=== PATIENT | female | born 1995 | race Caucasian/White ===

== ENCOUNTER 2018-07-28 20:48 | Emergency (ER) | payer BC ==
[~2018-07-28] VITALS: Ht 170.2 cm; Wt 70.3 kg
--- OUTSIDE RECORDS SUMMARY | 2018-07-28 20:51 | XMS REPORT | Clinical Summary ---
Author Author [facility] Organization [facility] Address Unknown Phone Unavailable Care Team Providers Care Soaking Room Operator Name Role Phone Asked, No Pcp PCP Unavailable Allergies No Known Allergies Medications End Date Status Medication Sig Dispensed Refills Start Date 09/15/2017 Discontinued acetaminophen-codeine Take 1-2 20 tablet 0 (TYLENOL WITH CODEINE #3) tablets by 8 300-30 mg per tablet mouth every 6 (six) hours as needed for moderate pain for up to 20 doses. Active Problems Problem Noted Date Ectopic 09/11/2017 Encounters Care Team Description Date Type Specialty Diana Jacinto MD Ectopic without intrauterine , unspecified location 10/02/2017 Orders Only Obstetrics and Gynecology Diana Jacinto MD Ectopic without intrauterine , unspecified location 09/25/2017 Orders Only Obstetrics and Gynecology Millie Wellington RN 09/18/2017 Telephone Obstetrics and Gynecology Diana Jacinto MD Ectopic without intrauterine , unspecified location (Primary Dx) 09/15/2017 Office Visit Obstetrics and Gynecology Bernadette Curtis RN Missed ab (Primary Dx) 09/14/2017 Orders Only Obstetrics and Gynecology Diana Jacinto MD 09/14/2017 Telephone Obstetrics and Gynecology Bernadette Curtis RN Missed ab (Primary Dx) 09/14/2017 Orders Only Obstetrics and Gynecology Mario Panrell MD Right tubal without intrauterine (Primary Dx) 09/11/2017 Emergency Emergency Medicine after 07/27/2017 Family History Medical History Relation Name Comments No Known Problems Father No Known Problems Mother Relation Name Status Comments Father Alive Mother Alive Social History Date Tobacco Use Types Packs/Day Years Used Current Every Day Smoker Smokeless Tobacco: Never Used Alcohol Use Drinks/Week oz/Week Comments No Sex Assigned at Date Recorded Not on file Industry Job Start Date Occupation Not on file Not on file Not on file Travel End Travel History Travel Start No recent travel history available. Last Filed Vital Signs Time Taken Vital Sign Reading 09/15/2017 11:42 AM CDT Blood Pressure 125/85 09/15/2017 11:42 AM CDT Pulse 77 09/15/2017 11:42 AM CDT Temperature 37.2 C (98.9 F) 09/11/2017 10:45 PM CDT Respiratory Rate 17 09/11/2017 10:45 PM CDT Oxygen Saturation 99% - Inhaled Oxygen - Concentration 09/15/2017 11:42 AM CDT Weight 73 kg (161 lb) 09/15/2017 11:42 AM CDT Height 170.2 cm (5' 7") 09/15/2017 11:42 AM CDT Body Mass Index 25.22 Plan of Treatment Health Maintenance Due Date Last Done Comments CHLAMYDIA SCREENING 2011 CERVICAL CANCER SCREENING 06/27/2016 INFLUENZA VACCINE 10/28/2018 Procedures Comments Procedure Name Priority Date/Time Associated Diagnosis HCG QUANTITATIVE, SERUM Routine 09/17/2017 Ectopic without 12:45 PM CDT intrauterine , unspecified location HCG QUANTITATIVE, SERUM Routine 09/14/2017 Missed ab 2:26 PM CDT ZZESTIMATED GFR Routine 09/11/2017 8:00 PM CDT COMPREHENSIVE METABOLIC Routine 09/11/2017 PANEL 8:00 PM CDT HC COMPLETE BLD COUNT Routine 09/11/2017 W/AUTO DIFF 8:00 PM CDT US TRANSVAGINAL STAT 09/11/2017 7:03 PM CDT US SINGLE LESS STAT 09/11/2017 THAN 14 WEEKS 7:02 PM CDT TYPE AND SCREEN Routine 09/11/2017 5:08 PM CDT HCG QUANTITATIVE, SERUM STAT 09/11/2017 5:08 PM CDT after 07/27/2017 Results * hCG quantitative, serum (09/17/2017 12:45 PM CDT) Only the most recent of 3 results within the time period is included. hCG quantitative, serum 165 (H) mIU/mL [facility] Comment: [place] Reference Range Non or premenopausal<5 Postmenopausal <10 Values from different assay methods may vary. The use of this assay to monitor or to diagnose patients with cancer or any condition unrelated to has not been cleared or approved by the FDA or the repairer screen crusher of the assay. Specimen Blood Resulting Agency Comment Performing Organization Information: Site ID: [id number] Name: [facility] Address: [address] [place] [phone] Director: Olivia Land Performing Organization Address City/[facility] Cent[facility]ode Phone Number [employer] [place] [phone] * Estimated GFR (09/11/2017 8:00 PM CDT) GFR Non Af Amer >90 mL/min/1.73 m2 [facility] DEPARTMENT OF PATHOLOGY AND GENOMIC MEDICINE GFR Af Amer >90 mL/min/1.73 m2 [facility] DEPARTMENT OF Comment: PATHOLOGY AND Chronic kidney disease: <60 GENOMIC MEDICINE mL/min/1.73m2 Kidney failure: <15 mL/min/1.73m2 The estimated GFR is calculated from the IDMS-traceable Modification of Diet in Renal Disease Equation. The accuracy of the calculation is poor when the creatinine is normal. Calculated values >90 mL/min/1.73m2 are not reported. This equation has not been validated in children (<18 years), women, the elderly (>70 years), or ethnic groups other than Caucasians and Americans. Specimen Plasma specimen Performing Organization Address City/[facility] Cent[facility]ode Phone Number [facility] [place] [id number] [place] [address] [place] [phone] PATHOLOGY AND [place] MEDICINE * CBC with platelet and differential (09/11/2017 8:00 PM CDT) WBC 9.14 4.50 - 11.00 k/uL [facility] DEPARTMENT OF PATHOLOGY AND GENOMIC MEDICINE RBC 4.08 (L) 4.20 - 5.50 m/uL [facility] DEPARTMENT OF PATHOLOGY AND GENOMIC MEDICINE HGB 12.3 12.0 - 16.0 g/dL [facility] DEPARTMENT OF PATHOLOGY AND GENOMIC MEDICINE HCT 35.9 (L) 37.0 - 47.0 % [facility] DEPARTMENT OF PATHOLOGY AND GENOMIC MEDICINE MCV 88.0 82.0 - 100.0 fL [facility] DEPARTMENT OF PATHOLOGY AND GENOMIC MEDICINE MCH 30.1 27.0 - 34.0 pg [facility] DEPARTMENT OF PATHOLOGY AND GENOMIC MEDICINE MCHC 34.3 31.0 - 37.0 g/dL [facility] DEPARTMENT OF PATHOLOGY AND GENOMIC MEDICINE RDW - SD 37.9 37.0 - 55.0 fL [facility] DEPARTMENT OF PATHOLOGY AND GENOMIC MEDICINE MPV 9.6 8.8 - 13.2 fL [facility] DEPARTMENT OF PATHOLOGY AND GENOMIC MEDICINE Platelet count 282 150 - 400 k/uL [facility] DEPARTMENT OF PATHOLOGY AND GENOMIC MEDICINE Nucleated RBC 0.00 /100 WBC [facility] DEPARTMENT OF PATHOLOGY AND GENOMIC MEDICINE Neutrophils 62.0 39.0 - 69.0 % [facility] DEPARTMENT OF PATHOLOGY AND GENOMIC MEDICINE Lymphocytes 30.9 25.0 - 45.0 % [facility] DEPARTMENT OF PATHOLOGY AND GENOMIC MEDICINE Monocytes 5.4 0.0 - 10.0 % [facility] DEPARTMENT OF PATHOLOGY AND GENOMIC MEDICINE Eosinophils 1.1 0.0 - 5.0 % [facility] DEPARTMENT OF PATHOLOGY AND GENOMIC MEDICINE Basophils 0.4 0.0 - 1.0 % [facility] DEPARTMENT OF PATHOLOGY AND GENOMIC MEDICINE Specimen Blood Performing Organization Address City/State/Zipcode Phone Number [address] [place] [address] PATHOLOGY AND GENOMIC MEDICINE * Comprehensive metabolic panel (09/11/2017 8:00 PM CDT) Sodium 136 135 - 148 mEq/L [facility] DEPARTMENT OF PATHOLOGY AND GENOMIC MEDICINE Potassium 3.9 3.5 - 5.0 mEq/L [facility] DEPARTMENT OF PATHOLOGY AND GENOMIC MEDICINE Chloride 102 98 - 112 mEq/L [facility] DEPARTMENT OF PATHOLOGY AND GENOMIC MEDICINE CO2 24 24 - 31 mEq/L [facility] DEPARTMENT OF PATHOLOGY AND GENOMIC MEDICINE Anion gap 10@ANIO 7 - 15 mEq/L [facility] DEPARTMENT OF PATHOLOGY AND GENOMIC MEDICINE BUN 7 6 - 20 mg/dL [facility] DEPARTMENT OF PATHOLOGY AND GENOMIC MEDICINE Creatinine 0.6 0.5 - 0.9 mg/dL [facility] DEPARTMENT OF PATHOLOGY AND GENOMIC MEDICINE Glucose 94 65 - 99 mg/dL [facility] DEPARTMENT OF PATHOLOGY AND GENOMIC MEDICINE Calcium 9.0 8.3 - 10.2 mg/dL [facility] DEPARTMENT OF PATHOLOGY AND GENOMIC MEDICINE Protein 7.2 6.3 - 8.3 g/dL [facility] DEPARTMENT OF Comment: PATHOLOGY AND GENOMIC MEDICINE 4.6-7.0 g/dL 1 week 4.4-7.6 g/dL 7 months-1year 5.1-7.3 g/dL 1-2 years5.6-7 .5 g/dL >3 years6.0-8 .0 g/dL 18-150 6.3-8.3 g/dL Albumin 4.5 3.5 - 5.0 g/dL [facility] DEPARTMENT OF PATHOLOGY AND GENOMIC MEDICINE A/G ratio 1.7 0.7 - 3.8 [facility] DEPARTMENT OF PATHOLOGY AND GENOMIC MEDICINE Alkaline phosphatase 52 35 - 104 U/L [facility] DEPARTMENT OF PATHOLOGY AND GENOMIC MEDICINE AST 16 10 - 35 U/L [facility] DEPARTMENT OF PATHOLOGY AND GENOMIC MEDICINE ALT 8 5 - 50 U/L [facility] DEPARTMENT OF PATHOLOGY AND GENOMIC MEDICINE Total bilirubin 0.2 0.0 - 1.2 mg/dL [facility] DEPARTMENT OF PATHOLOGY AND GENOMIC MEDICINE Specimen Plasma specimen Performing Organization Address City/[facility] Centercode Phone Number [address] [place] [address] PATHOLOGY AND GENOMIC MEDICINE * US Transvaginal (09/11/2017 7:03 PM CDT) Narrative Performed At EXAMINATION:US TRANSVAGINAL [facility] CLINICAL HISTORY:r o ectopic COMPARISON:None. IMPRESSION:Please see ultrasound single less than 14 week gestation report of the same date [id number] Procedure Note Hm Interface, Radiology Results Incoming - 09/11/2017 7:21 PM CDT EXAMINATION: US TRANSVAGINAL CLINICAL HISTORY: r o ectopic COMPARISON: None. IMPRESSION:Please see ultrasound single less than 14 week gestation report of the same date [id number] Performing Organization Address City/[facility]/Zipcode Phone Number [facility] [address] [place] [address] * US Single Less Than 14 Weeks (09/11/2017 7:02 PM CDT) Narrative Performed At EXAMINATION:US SINGLE LESS THAN 14 WEEKS [facility] CLINICAL HISTORY:r o ectopic COMPARISON:None. FINDINGS: Uterus measures 7.5 cm length 4.2 cm in AP dimension 6.2 cm in width. There is no gestational sac identified within the uterus. No decidual reaction is visualized within the uterus. The uterus appears somewhat heterogeneous in texture. To better assess uterine texture and evaluate the adnexa transvaginal scanning was employed. Transvaginal scan: Demonstrates endometrial thickness of 1.1 cm. The right ovary appears normal measuring 3.7 x 2.2 x 4.9 cm with what may be a small hemorrhagic cyst measuring approximately 1.7 x 2.3 cm. Flow to the right ovary is demonstrated. The left ovary measures 3.5 x 2.0 x 3.3 cm. Flow to the left ovary is identified. There is however a heterogeneous 1.5 x 1.2 cm echogenic focus with a central lucency suggesting an ectopic . There is little flow around the margins of the mass although there are a few internal echoes internally suggesting the possibility of an early embryo although no cardiac activity is identified. There is no free fluid in the cul-de-sac. IMPRESSION: 1. Left adnexal mass which has an appearance very suggestive of an ectopic although this is not entirely definitive. No embryo or yolk sac is confirmed with certainty. 2. No free fluid in the cul-de-sac. The findings were discussed with Dr. Parnell in the emergency department September 11, 2017 7:17 PM [id number] Procedure Note Hm Interface, Radiology Results Incoming - 09/11/2017 7:20 PM CDT EXAMINATION: US SINGLE LESS THAN 14 WEEKS CLINICAL HISTORY: r o ectopic COMPARISON: None. FINDINGS: Uterus measures 7.5 cm length 4.2 cm in AP dimension 6.2 cm in width. There is no gestational sac identified within the uterus. No decidual reaction is visualized within the uterus. The uterus appears somewhat heterogeneous in texture. To better assess uterine texture and evaluate the adnexa transvaginal scanning was employed. Transvaginal scan: Demonstrates endometrial thickness of 1.1 cm. The right ovary appears normal measuring 3.7 x 2.2 x 4.9 cm with what may be a small hemorrhagic cyst measuring approximately 1.7 x 2.3 cm. Flow to the right ovary is demonstrated. The left ovary measures 3.5 x 2.0 x 3.3 cm. Flow to the left ovary is identified. There is however a heterogeneous 1.5 x 1.2 cm echogenic focus with a central lucency suggesting an ectopic . There is little flow around the margins of the mass although there are a few internal echoes internally suggesting the possibility of an early embryo although no cardiac activity is identified. There is no free fluid in the cul-de-sac. IMPRESSION: 1. Left adnexal mass which has an appearance very suggestive of an ectopic although this is not entirely definitive. No embryo or yolk sac is confirmed with certainty. 2. No free fluid in the cul-de-sac. The findings were discussed with Dr. Parnell in the emergency department September 11, 2017 7:17 PM [id number] Performing Organization Address City/[facility] Phone Number [facility] [address] [place] [address] * Type and screen (09/11/2017 5:08 PM CDT) ABO grouping O [facility] DEPARTMENT OF PATHOLOGY AND GENOMIC MEDICINE Rh type POS [facility] DEPARTMENT OF PATHOLOGY AND GENOMIC MEDICINE Antibody screen NEG [facility] DEPARTMENT OF PATHOLOGY AND GENOMIC MEDICINE Specimen Blood Performing Organization Address City/[facility] Cent[facility]ode Phone Number [facility] DEPARTMENT [address] [place] [address] PATHOLOGY AND GENOMIC MEDICINE after 07/27/2017 Insurance Payer Benefit Subscriber ID Type Phone Address Plan / Group BCBS BCBS xxxxxxxxxxxx PPO CHOICE PPO/[employer] PPO Advance Directives Patient has advance care planning documents on file. For more information, talia paredes contact: Brayan Zavala [address] [place] [address]
--- OUTSIDE RECORDS SUMMARY | 2018-07-28 20:51 | XMS REPORT ---
Author [facility] Address Unknown Phone Unavailable Care Team Providers Care Mounter Flutes And Piccolos Name Role Phone Unavailable Unavailable Payers Payer Name Policy Type Policy Number Effective Date Expiration Date Problems This patient has no known problems. Allergies, Adverse Reactions, Alerts Allergy Name Allergy Type Status Severity Reaction(s) Onset Date Inactive Date Treating Clinician Comments No Known Allergies DA Active U 2017-05-14 00:00:00 Medications This patient has no known medications. Results Test Description Test Time Test Comments Text Results Atomic Results Result Comments CSF CELL CT/DIFF 2018-07-27 16:27:00 CSF TUBE # (test code=BFCSFT) 3 CSF COLOR (test code=COLCSF) COLORLESS COLORLESS CSF APPEARANCE (test code=APPCSF) CLEAR CLEAR DILUENT CHECK FOR CELL CT (test code=DILUENT) NO DILUENT USED CLEAR,pH=7 CSF VOLUME (test code=VOLCSF) 28.0 ML Previously reported result: 13.5 MLEdited by: [email or web address] on 19:1626 CSF WBC (test code=WBCCSF) 1 CELL/MM3 0-5 CSF RBC (test code=RBCCSF) 1 CELL/MM3 0-0 # SQUARES COUNTED ON LYNN (test code=SQCTRBC) 9 Specimen comments: cerebrospinal fluidCSF [id number] 16:27:00* Test Item Value Reference Range Comments CSF ALBUMIN (test code=ALBCSF) MG/DL 11-48 Specimen comments: cerebrospinal fluidCSF IMMUNOGLOBULIN [id number] 16:27:00* Test Item Value Reference Range Comments CSF IMMUNOGLOBULIN G (test code=IGGCSF) mg/dl 0.0-8.6 Specimen comments: cerebrospinal fluidCSF IGG [id number] 16:27:00* Test Item Value Reference Range Comments CSF IGG INDEX (test code=IGGINCSF) 0.0-0.6 Specimen comments: cerebrospinal fluidCSF IGG [id number] 16:27:00* Test Item Value Reference Range Comments CSF IGG SYNTHESIS (test code=IGGSYNCSF) mg/24HR -9.9-3.3 Specimen comments: cerebrospinal fluidCSF IGG/ALBUMIN [id number] 16:27:00* Test Item Value Reference Range Comments CSF IGG/ALBUMIN RATIO (test code=IGGALBCSF) Specimen comments: cerebrospinal fluidCSF [id number] 16:27:00* Test Item Value Reference Range Comments CSF GLUCOSE (test code=GLUCSF) 52 MG/DL 40-70 Specimen comments: cerebrospinal fluidCSF TOTAL [id number] 16:27:00* Test Item Value Reference Range Comments CSF TOTAL PROTEIN (test code=PROTCSF) 50 MG/DL 12-60 Specimen comments: cerebrospinal fluidCSF MYELIN SHEATH [id number] 16:27:00* Test Item Value Reference Range Comments CSF MYELIN SHEATH PROTEIN (test code=MYELCSF) ng/ml 0.0-1.2 Specimen comments: cerebrospinal fluidCSF OLIGOCLONAL [id number] 16:27:00* Test Item Value Reference Range Comments CSF OLIGOCLONAL BANDS (test code=OLIGCSFMS) Specimen comments: cerebrospinal fluidCSF VDRL [id number] 16:27:00* Test Item Value Reference Range Comments CSF VDRL QUAL (test code=VDRLCSFQL) NON REACT Specimen comments: cerebrospinal fluidCSF CELL [id number] 16:25:00* Test Item Value Reference Range Comments CSF TUBE # (test code=BFCSFT) 3 CSF COLOR (test code=COLCSF) COLORLESS COLORLESS CSF APPEARANCE (test code=APPCSF) CLEAR CLEAR DILUENT CHECK FOR CELL CT (test code=DILUENT) NO DILUENT USED CLEAR,pH=7 CSF VOLUME (test code=VOLCSF) 13.5 ML CSF WBC (test code=WBCCSF) 1 CELL/MM3 0-5 CSF RBC (test code=RBCCSF) 1 CELL/MM3 0-0 # SQUARES COUNTED ON LYNN (test code=SQCTRBC) 9 Specimen comments: cerebrospinal fluidCSF [id number] 16:25:00* Test Item Value Reference Range Comments CSF ALBUMIN (test code=ALBCSF) MG/DL 11-48 Specimen comments: cerebrospinal fluidCSF IMMUNOGLOBULIN [id number] 16:25:00* Test Item Value Reference Range Comments CSF IMMUNOGLOBULIN G (test code=IGGCSF) mg/dl 0.0-8.6 Specimen comments: cerebrospinal fluidCSF IGG [id number] 16:25:00* Test Item Value Reference Range Comments CSF IGG INDEX (test code=IGGINCSF) 0.0-0.6 Specimen comments: cerebrospinal fluidCSF IGG [id number] 16:25:00* Test Item Value Reference Range Comments CSF IGG SYNTHESIS (test code=IGGSYNCSF) mg/24HR -9.9-3.3 Specimen comments: cerebrospinal fluidCSF IGG/ALBUMIN [id number] 16:25:00* Test Item Value Reference Range Comments CSF IGG/ALBUMIN RATIO (test code=IGGALBCSF) Specimen comments: cerebrospinal fluidCSF [id number] 16:25:00* Test Item Value Reference Range Comments CSF GLUCOSE (test code=GLUCSF) 52 MG/DL 40-70 Specimen comments: cerebrospinal fluidCSF TOTAL [id number] 16:25:00* Test Item Value Reference Range Comments CSF TOTAL PROTEIN (test code=PROTCSF) 50 MG/DL 12-60 Specimen comments: cerebrospinal fluidCSF MYELIN SHEATH [id number] 16:25:00* Test Item Value Reference Range Comments CSF MYELIN SHEATH PROTEIN (test code=MYELCSF) ng/ml 0.0-1.2 Specimen comments: cerebrospinal fluidCSF OLIGOCLONAL [id number] 16:25:00* Test Item Value Reference Range Comments CSF OLIGOCLONAL BANDS (test code=OLIGCSFMS) Specimen comments: cerebrospinal fluidCSF VDRL [id number] 16:25:00* Test Item Value Reference Range Comments CSF VDRL QUAL (test code=VDRLCSFQL) NON REACT Specimen comments: cerebrospinal fluidCSF CELL [id number] 16:10:00* Test Item Value Reference Range Comments CSF TUBE # (test code=BFCSFT) CSF COLOR (test code=COLCSF) COLORLESS CSF APPEARANCE (test code=APPCSF) CLEAR DILUENT CHECK FOR CELL CT (test code=DILUENT) CLEAR,pH=7 CSF VOLUME (test code=VOLCSF) ML CSF WBC (test code=WBCCSF) CELL/MM3 0-5 CSF RBC (test code=RBCCSF) CELL/MM3 0-0 Specimen comments: cerebrospinal fluidCSF [id number] 16:10:00* Test Item Value Reference Range Comments CSF ALBUMIN (test code=ALBCSF) MG/DL 11-48 Specimen comments: cerebrospinal fluidCSF IMMUNOGLOBULIN [id number] 16:10:00* Test Item Value Reference Range Comments CSF IMMUNOGLOBULIN G (test code=IGGCSF) mg/dl 0.0-8.6 Specimen comments: cerebrospinal fluidCSF IGG [id number] 16:10:00* Test Item Value Reference Range Comments CSF IGG INDEX (test code=IGGINCSF) 0.0-0.6 Specimen comments: cerebrospinal fluidCSF IGG [id number] 16:10:00* Test Item Value Reference Range Comments CSF IGG SYNTHESIS (test code=IGGSYNCSF) mg/24HR -9.9-3.3 Specimen comments: cerebrospinal fluidCSF IGG/ALBUMIN [id number] 16:10:00* Test Item Value Reference Range Comments CSF IGG/ALBUMIN RATIO (test code=IGGALBCSF) Specimen comments: cerebrospinal fluidCSF [id number] 16:10:00* Test Item Value Reference Range Comments CSF GLUCOSE (test code=GLUCSF) 52 MG/DL 40-70 Specimen comments: cerebrospinal fluidCSF TOTAL [id number] 16:10:00* Test Item Value Reference Range Comments CSF TOTAL PROTEIN (test code=PROTCSF) 50 MG/DL 12-60 Specimen comments: cerebrospinal fluidCSF MYELIN SHEATH [id number] 16:10:00* Test Item Value Reference Range Comments CSF MYELIN SHEATH PROTEIN (test code=MYELCSF) ng/ml 0.0-1.2 Specimen comments: cerebrospinal fluidCSF OLIGOCLONAL [id number] 16:10:00* Test Item Value Reference Range Comments CSF OLIGOCLONAL BANDS (test code=OLIGCSFMS) Specimen comments: cerebrospinal fluidCSF VDRL [id number] 16:10:00* Test Item Value Reference Range Comments CSF VDRL QUAL (test code=VDRLCSFQL) NON REACT Specimen comments: cerebrospinal fluid- MRV HEAD WO [id number] 08:26:00 Patient Name: JELENA CARRILLO Unit No: [id number] EX AMS: CPT CODE: [id number] MRV HEAD WO CONT 21578 MRV HEAD WITHOUT CONTRAST HISTORY: Papilledema COMPARISON: None. TECHNIQUE: 3-D nvso-mj-dguzbt coronal and MIP images were obtained through the deep venous sinuses. Location: U19. FINDINGS: There is asymmetry in the transverse sinus with the right being dominant, likely related to variant anatomy. The sigmoid, transverse, sagittal and straight sinuses are patent. No evidence of a deep venous thrombosis. IMPRESSION: No venous sinus thr ombosis. at 0826 Reported and signed by: Mirtha Guajardo MD CC: Technologist: Richard Coto RT(R)(CT)(MRI) Transcrpt Date/Tm/Trnsp: 07/27/2018 (825) [email or web address] Orig Print D/T: S: 07/27/2018 (0829) [facility] NAME: JELENA CARRILLO [id number] PHYS: [place] [address] : 1995 AGE: 23 SEX: F LOC: [id number] A PHONE #: [phone] EXAM DATE: 07/27/2018 STATUS: ADM IN FAX #: [phone] RADIOLOGY NO: PAGE 1 Signed Report HIV 12 AB DIFFERENTIATION 2018-07-26 21:43:00* Test Item Value Reference Range Comments AB HIV 1 2 (test code=CUA03IH) NON REACTIVE NON-REAC NOTE: A NONREACTIVE RESULT INDICATES THAT HIV-1 AND HIV-2ANTIBODIES HAVE NOT BEEN FOUND IN THIS PATIENT SPECIMEN. ANON-REACTIVE RESULT, HOWEVER, DOES NOT PRECLUDE PREVIOUSEXPOSURE OR INFECTION WITH HIV1. AG HIV1 P24 (test code=MLO0J44) NON REACTIVE NONE REAC CSF CELL [id number] 15:05:00* Test Item Value Reference Range Comments CSF TUBE # (test code=BFCSFT) 4 CSF COLOR (test code=COLCSF) COLORLESS COLORLESS CSF APPEARANCE (test code=APPCSF) CLEAR CLEAR DILUENT CHECK FOR CELL CT (test code=DILUENT) NO DILUENT USED CLEAR,pH=7 CSF VOLUME (test code=VOLCSF) 28.0 ML CSF WBC (test code=WBCCSF) 2 CELL/MM3 0-5 CSF RBC (test code=RBCCSF) 0 CELL/MM3 0-0 CSF [id number] 15:05:00* Test Item Value Reference Range Comments CSF GLUCOSE (test code=GLUCSF) 52 MG/DL 40-70 CSF TOTAL [id number] 15:05:00* Test Item Value Reference Range Comments CSF TOTAL PROTEIN (test code=PROTCSF) 49 MG/DL 12-[id number] 14:30:00* Test Item Value Reference Range Comments CSF TUBE # (test code=BFCSFT) 4 CSF COLOR (test code=COLCSF) COLORLESS COLORLESS CSF APPEARANCE (test code=APPCSF) CLEAR CLEAR DILUENT CHECK FOR CELL CT (test code=DILUENT) NO DILUENT USED CLEAR,pH=7 CSF VOLUME (test code=VOLCSF) 28.0 ML CSF WBC (test code=WBCCSF) 2 CELL/MM3 0-5 CSF RBC (test code=RBCCSF) 0 CELL/MM3 0-0 CSF [id number] 14:30:00* Test Item Value Reference Range Comments CSF GLUCOSE (test code=GLUCSF) MG/DL 40-70 CSF TOTAL [id number] 14:30:00* Test Item Value Reference Range Comments CSF TOTAL PROTEIN (test code=PROTCSF) MG/DL 12-60 - SP PUNCTURE LUMBAR [id number] 14:26:00 Patient Name: JELENA CARRILLO Unit No: [id number] EXAMS: CPT CODE: [id number] [place] [address] PROCEDURE: IMAGE-GUIDED LUMBAR PUNCTURE. LOCATION: B2. HISTORY: Papilledema and headache. SEDATION: The patient did not require conscious sedation for the procedure. RADIATION DOSE: Reference air kerma 8.34 mGy. TECHNIQUE: Risks, benefits, and alternatives were explained to the patient and informed consent was obtained. The patient was prepped in the usual sterile fashion. Sterile barriers including cap, mask, sterile gloves, and cutaneous antisepsis were utilized. Patient was placed in the left lateral decubitus position. Fluoroscopy was used to determine an appropriate access into the thecal sac. Using fluoroscopic guidance, a needle was advanced into the thecal sac at the level of L3/4. Opening CSF pressure was 43 cm H2O. Approximately 25 mL of clear CSF was removed. Samples were sent for lab analysis. The patient tolerated the procedure well. ESTIMATED BLOOD LOSS: Less than 5 mL. COMPLICATIONS: None. DISCHARGED TO: Inpatient unit. FINDINGS: Fluoroscopy demonstrates appropriate needle placement into the thecal sac. IMPRESSION: Successful image-guided lumbar puncture. Elevated opening CSF pressure of 43 cm H2O. Electronic ally Signed by Alissa Garcia MD on 07/26/2018 at 7763 Rep orted and signed by: Alissa Garcia MD [facility] NAME: JELENA CARRILLO [id number] PHYS: [place] [address] : 1995 AGE: 23 SEX: F ACCT NO: Z [id number] LOC: Z.507 A PHONE #: [phone] EXAM DATE: STATUS: ADM IN FAX #: [phone] RADIOLOGY NO: PAGE 1 Signed Report (CONTINUED) Patient Name: JELENA CARRILLO Unit No: [id number] EXAMS: CPT CODE: [id number] [place] [id number] <Continued> CC: Mart Haque MD; Vandana Armendariz MD Technologist: Ning Beckham, RT(R) Transcrpt Date/Tm/Trnsp: 07/26/2018 (9820) [email or web address] Orig Print D/T: S: 07/26/2018 (6910) [facility] NAME: JELENA CARRILLO [address] PHYS: [place] [address] : 1995 AGE: 23 SEX: F LOC: Geraldine Durán PHONE #: [phone] EXAM DATE: 07/26/2018 STATUS: ADM IN FAX #: [phone] RADIOLOGY NO: PAGE 2 Signed Report CHLOE [id number] 07:45:00* Test Item Value Reference Range Comments CHLOE DIRECT (test code=ANADIR) Negative () Negative <1:80 Borderline 1:80 Positive >1:80Performed At: [facility] [address] [id number] Mingo Guzmán MD Ph:[phone] LUPUS (LE) [id number] 07:45:00* Test Item Value Reference Range Comments LUPUS (SLE) PANEL RESULTS (test code=SLEPANELR) Systemic Lupus Profile A GREASER AND OILER Antibodies <0.2 AI 0.0 - 0.9 Parks Antibodies <0.2 AI 0.0 - 0.9 RA Latex Turbid. <10.0 IU/mL 0.0 - 13.9 Antichromatin Antibodies <0.2 AI 0.0 - 0.9 Sjogren's Anti-SS-A <0.2 AI 0.0 - 0.9 Sjogren's Anti-SS-B <0.2 AI 0.0 - 0.9 Anti-DNA (DS) Ab Qn 4 IU/mL 0 - 9 Negative <5 Equivocal 5 - 9 Positive >9 TOTAL [id number] 07:39:00* Test Item Value Reference Range Comments TOTAL T3 (test code=T3) 1.58 ng/ML 0.97-1.69 [id number] 07:39:00* Test Item Value Reference Range Comments THYROGLOBULIN (test code=THYROGL) 36.5 NORMAL : 1.5-38.5 ng/ml AB [id number] 07:18:00* Test Item Value Reference Range Comments AB THYROGLOBULIN (test code=THYROAB) < 1.0 IU/mL 0.0-0.9 Thyroglobulin Antibody measured by [facility] [employer] AB THYROID [id number] 07:18:00* Test Item Value Reference Range Comments AB THYROID MICROSOMAL (test code=THYRMAB) 15 IU/mL 0-34 Performed At: [facility] [address] [id number] Guzmán MD Ph:[phone] CHLOE [id number] 07:18:00* Test Item Value Reference Range Comments CHLOE DIRECT (test code=ANADIR) Negative () Negative <1:80 Borderline 1:80 Positive >1:80Performed At: [facility] [address] [id number] Guzmán MD Ph:[phone] LUPUS (LE) [id number] 07:18:00* Test Item Value Reference Range Comments LUPUS (SLE) PANEL RESULTS (test code=SLEPANELR) AI 0.0-0.9 T4 (THYROXINE)2018-07-24 07:23:00* Test Item Value Reference Range Comments T4 (THYROXINE) (test code=T4) 10.30 UG/DL 5.53-11.0 THYROID STIMULATING [id number] 07:23:00* Test Item Value Reference Range Comments THYROID STIMULATING HORMONE (test code=TSH) 0.692 MIU/L 0.465-4.68 Please be aware that bias results for TSH may occur forpatient who are taking Biotin supplements. T4 (THYROXINE)2018-07-24 07:09:00* Test Item Value Reference Range Comments T4 (THYROXINE) (test code=T4) 10.30 UG/DL 5.53-11.0 THYROID STIMULATING [id number] 07:09:00* Test Item Value Reference Range Comments THYROID STIMULATING HORMONE (test code=TSH) MIU/L 0.465-4.68 T4 [id number] 07:06:00* Test Item Value Reference Range Comments T4 FREE (test code=T4F) 1.1 NG/DL 0.78-2.19 TOTAL [id number] 13:58:00* Test Item Value Reference Range Comments TOTAL T3 (test code=T3) 1.58 ng/ML 0.97-1.69 SED [id number] 03:02:00* Test Item Value Reference Range Comments SED RATE (test code=SEDW) 25 MM/HR 0-20 RHEUMATOID FACTOR [id number] 01:49:00* Test Item Value Reference Range Comments RHEUMATOID FACTOR SCREEN (test code=RA) NEGATIVE NEGATIVE - MRI OR/FCE/NCK W [id number] 21:21:00 Patient Name: JELENA CARRILLO Unit No: [id number] EXAMS: CPT CODE: [id number] [place]/FCE/[place] [address] MRI ORBITS WITHOUT AND WITH CONTRAST HISTORY: papilledema and migraines TECHNIQUE: Multiplanar and multiple pulse sequences were obtained throughout the orbits and brain without and with gadolinium (18 mL MultiHance). Location: L11. COMPARISON: None. FINDINGS: Diffusion weighted imaging shows no evidence of acute ischemia. There are couple of scattered small foci of increased T2 and FLAIR signal within the periventricular and deep white matter in both cerebral hemispheres. No intracranial hemorrhage, mass, mass effect, hydrocephalus, midline shift or extra-axial fluid collection. Images of the orbits show minimal protrusion of the optic discs and prominent CSF surrounding the optic nerves bilaterally. No abnormal enhancement. The extraocular muscles are unremarkable. No evidence of extraocular muscle entrapment, correlate clinically. The optic chiasm and tracts are unremarkable. Pituitary fossa and posterior fossa are unremarkable. Postcontrast images show no abnormal enhancement. The paranasal sinuses and mastoid air cells are clear. IMPRESSION: Prominent CSF surrounding the optic nerves bilaterally along with slight protrusion of the optic discs likely relate to papilledema. No significant en hancement however optic neuritis may also be considered. Minim al scattered white matter disease, greater than expected for age. Findi ngs are nonspecific and can be associated with migraines or demyelinatin g process such as multiple sclerosis.. Electronically Elen d by Mirtha Guajardo MD on 07/22/2018 at 2120 Reported and signed by: Mirtha Guajardo MD CC: Kwame Parks MD Technologist: Vane Tinsley RT(R) (MR) Transcrpt Date/Tm/Trnsp: 07/22/2018 (2120) [email or web address] Orig Print D/T: S: 07/22/2018 (2123) [facility] NAME: JELENA ROTH [id number] [address] PHYS: [email or web address] - [place] [address] : 1995 AGE: 23 SEX: F LOC: Z.507 A PHONE #: [phone] EXAM DATE: 07/22/2018 STATUS: ADM IN FAX #: [phone] RADIOLOGY NO: PAGE 1 Signed Report HCG SERUM 2018-07-22 19:15:00* Test Item Value Reference Range Comments HCG SERUM (test code=HCG) < 2 IU/L ~~~~~~~~~~~~~~~~~~~~~~~~~~~~~~~~~~~~~~~~~~~~~~~~~~~~~~~~~~~~INTERPRETATION OF BHCG QN PERFORMED AT [facility] 0.2-1 WEEKS AFTER CONCEPTION 5-50 1-2 WEEKS AFTER CONCEPTION 50-500 2-3 WEEKS AFTER CONCEPTION 100-5,000 3-4 WEEKS AFTER CONCEPTION 500-10,000 4-5 WEEKS AFTER CONCEPTION 1,000-50,000 5-6 WEEKS AFTER CONCEPTION 10,000-100,0006-8 WEEKS AFTER CONCEPTION 15,000-200,0002-3 MONTHS 10,000-100,000 All values given in slime-International Units per milliliter. SPECIMENS WITH B-HCG LEVELS LESS THAN OR EQUAL TO 5 slime- International Units per milliliter WILL BE REPORTED ZERO OR "NEGATIVE." SPECIMENS WITHB-HCG LEVELS GREATER THAN OR EQUAL TO 25 slime-International Units per milliliter WILL BEREPORTED "POSITIVE." SPECIMENS WITH B-HCG LEVELS GREATERTHAN 5 slime-International Units per milliliter AND LESS THAN 25 slime- International Units per milliliterSHOULD HAVE ADDITIONAL BLOOD SAMPLE DRAWN 48 HOURSLATER AND REPEATED.~~~~~~~~~~~~~~~~~~~~~~~~~~~~~~~~~~~~~~~~~~~~~~~~~~~~~~~~~~~~ BASIC METABOLIC [id number] 19:10:00* Test Item Value Reference Range Comments SODIUM (test code=NA) 142 MMOL/L 137-145 POTASSIUM (test code=K) 3.8 MMOL/L 3.5-5.1 CHLORIDE (test code=CL) 104 MMOL/L 98-107 CARBON DIOXIDE (test code=CO2) 27 MMOL/L 22-30 GLUCOSE (test code=GLU) 86 MG/DL 74-106 BLOOD UREA NITROGEN (test code=BUN) 10 MG/DL 7-17 GLOMERULAR FILTRATION RATE (test code=GFR) > 60 Reporting units: ml/min/1.73 m2 (Modified MDRD Formula)Reference Range: > or=60 ml/min/1.73 m2 CREATININE (test code=CREAT) 0.70 MG/DL 0.52-1.04 CALCIUM (test code=CA) 9.7 MG/DL 8.4-10.2 [id number] 19:10:00* Test Item Value Reference Range Comments TROPONIN-I (test code=TROPI) < 0.012 NG/ML 0.012-0.033 BASIC METABOLIC [id number] 19:04:00* Test Item Value Reference Range Comments SODIUM (test code=NA) 142 MMOL/L 137-145 POTASSIUM (test code=K) 3.8 MMOL/L 3.5-5.1 CHLORIDE (test code=CL) 104 MMOL/L 98-107 CARBON DIOXIDE (test code=CO2) 27 MMOL/L 22-30 GLUCOSE (test code=GLU) 86 MG/DL 74-106 BLOOD UREA NITROGEN (test code=BUN) 10 MG/DL 7-17 GLOMERULAR FILTRATION RATE (test code=GFR) > 60 Reporting units: ml/min/1.73 m2 (Modified MDRD Formula)Reference Range: > or=60 ml/min/1.73 m2 CREATININE (test code=CREAT) 0.70 MG/DL 0.52-1.04 CALCIUM (test code=CA) 9.7 MG/DL 8.4-10.2 [id number] 19:04:00* Test Item Value Reference Range Comments TROPONIN-I (test code=TROPI) NG/ML 0.0-0.045 PROTHROMBIN [id number] 18:54:00* Test Item Value Reference Range Comments PROTHROMBIN TIME PATIENT (test code=PTP) 11.3 SECONDS 9.6-11.6 INTERNATIONAL NORMAL RATIO (test code=INR) 1.1 0.8-1.1 The INR is to be used only for monitoring oral anticoagulanttherapy. INDICATION INR VALUE 1. Prophylaxis, deep venous thrombosis, including high risk surgery. 2.0 - 3.0 2. Prophylaxis, deep venous thrombosis, hip surgery, treatment for deep venous thrombosis or pulmonary prevention of systemic embolism in patients with valvular heart disease, atrial fibrillation, tissue heart valve, or acute myocardial infarction. 2.0 - 3.0 3. M echanical prosthesis heart valves, recurrent systemic embolism. 3.0 - 4.5 PTT [id number] 18:54:00* Test Item Value Reference Range Comments PTT ACTIVATED (test code=APTT) 29.9 SECONDS 22.0-33.0 CBC W/AUTO [id number] 18:40:00* Test Item Value Reference Range Comments WHITE BLOOD CELL (test code=WBC) 5.3 K/MM3 3.8-9.8 RED BLOOD CELL (test code=RBC) 4.39 M/MM3 3.58-4.97 HEMOGLOBIN (test code=HGB) 13.1 G/DL 11.2-14.9 HEMATOCRIT (test code=HCT) 38.7 % 33.2-43.5 MEAN CELL VOLUME (test code=MCV) 88 fL 80.7-99.1 MEAN CELL HGB (test code=MCH) 29.8 pg 27.0-34.1 MEAN CELL HGB CONCETRATION (test code=MCHC) 33.9 % 32.2-35.7 RED CELL DISTRIBUTION WIDTH (test code=RDW) 12.0 % 12.1-15.2 PLATELET COUNT (test code=PLT) 295 K/MM3 129-368 MEAN PLATELET VOLUME (test code=MPV) 10.0 fl 7.4-10.4 NEUTROPHIL % (test code=NT%) 52.5 % 43-75 IMMATURE GRANULOCYTE % (test code=IG%) 0.2 % 0.0-2.0 LYMPHOCYTE % (test code=LY%) 33.0 % 14-44 MONOCYTE % (test code=MO%) 12.0 % 4-13 EOSINOPHIL % (test code=EO%) 1.5 % 0-6 BASOPHIL % (test code=BA%) 0.8 % 0-2 NUCLEATED RBC % (test code=NRBC%) 0.0 % 0-1.0 NEUTROPHIL # (test code=NT#) 2.76 K/mm3 2.0-7.6 IMMATURE GRANULOCYTE # (test code=IG#) 0.01 x10 3/uL 0-0.03 LYMPHOCYTE # (test code=LY#) 1.73 K/mm3 1.0-3.8 MONOCYTE # (test code=MO#) 0.63 K/mm3 0.1-0.8 EOSINOPHIL # (test code=EO#) 0.08 K/mm3 0.0-0.2 BASOPHIL # (test code=BA#) 0.04 K/mm3 0.0-0.2 NUCLEATED RBC # (test code=NRBC#) 0.00 K/mm3 0.0-0.1 - XR CHEST [id number] 18:07:00 Patient Name: JELENA CARRILLO Unit No: [id number] EXAMS: CPT CODE: [id number] XR CHEST 1V 40907 Dictation location B2 Portable chest one view. HISTORY:papilledema and migraines COMMENT: No comparison. Patient is poststernotomy. The lungs are clear and normally expanded. The heart and pulmonary vasculature is normal. Visualized soft tissues and skeletal structures are unremarkable. IMPRESSION: No active disease in the chest. at 1807 Reported and signed by: Yarely Hinson M.D. CC: Kwame Parks MD Technologist: Paty Anne RT(R) Transcrpt Date/Tm/Trnsp: 07/22/2018 (180) [place] Orig Print D/T: S: 07/22/2018 (181) [facility] NAME: JELENA CARRILLO [address] [address] PHYS: [email or web address] - [place] [address] : 1995 AGE: 23 SEX: F LOC: Z.ERS PHONE #: [phone] EXAM DATE: 07/22/2018 STATUS: REG ER FAX #: [phone] RADIOLOGY NO: PAGE 1 Signed Report
== END 2018-07-28 21:50 | disposition left against medical advice (07) ==
LOC: ER 20:48
DX: Z53.21 Procedure and treatment not carried out due to patient leaving prior to being seen by health care provider (principal); G43.C0 Periodic headache syndromes in child or adult, not intractable